=== PATIENT | male | born 1980 | race Caucasian/White ===

== ENCOUNTER 2021-04-06 11:34 | Emergency (ER) | payer MEDICARE ==
[2021-04-06] MEDS ORDERED: DOXYCYCLINE HY100 MG PO (12:45)
[2021-04-06] MEDS ORDERED: IBUPROFEN800 MG PO (12:45)
[2021-04-12 08:15] LABS: A. PHAGOCYTOPHILUM PCR Negative (Negative); EHRLICHIA CHAFFEENSIS PCR Negative (Negative)
== END 2021-04-06 13:01 | disposition home or self-care (01) ==
LOC: ER1 11:34
PROVIDERS: Physician Assistant
DX: S80.262A Insect bite (nonvenomous), left knee, initial encounter (principal); S70.362A Insect bite (nonvenomous), left thigh, initial encounter; S40.861A Insect bite (nonvenomous) of right upper arm, initial encounter; F17.200 Nicotine dependence, unspecified, uncomplicated; Z88.6 Allergy status to analgesic agent; Z88.8 Allergy status to other drugs, medicaments and biological substances; W57.XXXA Bitten or stung by nonvenomous insect and other nonvenomous arthropods, initial encounter
CPT/HCPCS: 86757; 87798; 99281